=== PATIENT | male | born 1995 | race Caucasian/White ===

== ENCOUNTER 2020-04-29 16:45 | Emergency (ER) | payer SELFPAY ==
--- NOTE | 2020-04-29 16:55 | ED.URI ---
HPI - URI/Sore Throat General Chief Complaint: Upper Respiratory Infection Stated Complaint: sore throat/nose bleeds/headache Time Seen by Provider: 04/29/20 17:01 Source: patient and RN notes reviewed Mode of arrival: ambulatory Limitations: no limitations History of Present Illness HPI Narrative: 25-year-old male presents with concern for 1 week history of sore throat, nasal congestion, sinus pressure. Also reports 1 to 2-month history of intermittent nosebleeds in the right nare, reports intermittent headaches. Reports nosebleed last for approximately 10 seconds and is controlled without intervention. He denies fever, malaise, body aches, cough, shortness of breath. MD elicited complaint: sore throat Related Data Allergies Allergy/AdvReac Type Severity Reaction Status Date / Time No Known Allergies Allergy Verified 04/29/20 17:00 Review of Systems Review of Systems: Narrative: CONSTITUTIONAL: Denies malaise, chills, sweats, or fever. EYES: Denies visual changes, redness, or discharge. ENT: Reports congestion, sinus pain, sore throat, intermittent epistaxis. Denies rhinorrhea, otalgia CARDIOVASCULAR: Denies chest pain, palpitations, or edema. RESPIRATORY: Denies cough or dyspnea. GASTROINTESTINAL: Denies abdominal pain, nausea, vomiting, diarrhea SKIN: Denies rash or itching. MUSCULOSKELETAL: Denies myalgia. NEUROLOGIC: Reports intermittent headache. All systems reviewed & are unremarkable except as noted in HPI and below PMFSH Social History Social History Gender identity (if verbalized by the patient): Male Comments At time of signature, agree with nursing past medical, surgical, social and family history. There is no relevant family history pertinent to the presenting complaint Exam Narrative: Exam Narrative: GENERAL: Well-appearing, well-nourished, and in no acute distress. HEAD: Normocephalic EYES: PERRLA, conjunctivae clear ENT: Nares clear, turbinates edematous and erythematous, clear discharge. No epistaxis or septal hematomas noted. Mucous membranes moist. TM pearly goel with dull light reflex bilaterally; no tragal tenderness. Oropharynx erythematous without lesions. Tonsils enlarged with yellow exudate, no drooling, no hoarseness, no trismus, uvula midline. NECK: Supple. No lymphadenopathy CHEST: Clear to auscultation, breath sounds equal. No wheezing, rhonchi, rales, or stridor. No respiratory distress, speaks in full sentences. HEART: Regular rate and rhythm. No murmur heard. SKIN: Warm, dry, no rash. NEURO: Alert and oriented x3. PSYCH: Normal mood and affect Course Course Emergency Course: Patient is aware of diagnosis, understands and agrees to treatment plan. Anticipatory guidance given. Patient agrees to follow-up as directed and is aware of reasons to seek care at the emergency department. Portions of this record may have been created with voice recognition software Vital Signs Vital signs: Vital Signs Temperature 98 F 04/29/20 16:59 Pulse Rate 98 04/29/20 16:59 Respiratory Rate 20 04/29/20 16:59 Blood Pressure 156/93 H 04/29/20 16:59 Pulse Oximetry 99 04/29/20 16:59 Temperature 98 F 04/29/20 16:59 Pulse Rate 98 04/29/20 16:59 Respiratory Rate 20 04/29/20 16:59 Blood Pressure 156/93 H 04/29/20 16:59 Pulse Oximetry 99 04/29/20 16:59 Reviewed. Pt has been instructed to follow up with his primary care provider within the next week regarding his elevated blood pressure today. MDM - URI/Sore Throat MDM Narrative Medical decision making narrative: Differential diagnosis considered: Epistaxis, strep pharyngitis, allergic rhinitis, upper respiratory tract infection, sinusitis, rhinosinusitis, nasopharyngitis. viral pharyngitis, otitis media, otitis externa, pneumonia, bronchitis, viral cough syndrome, viral syndrome, and influenza. Exam findings show no acute concerns or changes; patient is non-toxic appearing and is in no distress. Patient is appropriate for outp
[2020-04-29 16:59] VITALS: BP 156/93; PULSE 98; RESP 20; TEMP 36.6; O2SAT 99
== END 2020-04-29 17:16 | disposition home or self-care (01) ==
PROVIDERS: Emergency Provider Nurse Practitioner
DX: J01.90 Acute sinusitis, unspecified (principal); Z87.09 Personal history of other diseases of the respiratory system
CPT/HCPCS: 87081; 87880; 99213; G0463

== ENCOUNTER 2020-07-11 16:49 | Emergency (ER) | payer OTHER, SELFPAY ==
[2020-07-11 17:11] VITALS: BP 136/99; PULSE 100; RESP 18; TEMP 37.2; O2SAT 100
--- NOTE | 2020-07-11 19:41 | ED.ALLEREA ---
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 about it He currently has a rash on his face and upper neck which is improving which she thinks might be from contact with bleach although his skin was never an actual contact with bleach, only with clothes which had been washed Then he has several other very well demarcated pruritic erythematous raised plaques with pustules on his low back upper lateral back and upper arms which he believes arose after he sat in an old chair at his girlfriend's parents house He said he got a rash the last time he sat in the same chair but there was a sheet put on at this time so only the parts of his body that were on the chair upholstery got presumably exposed and broke out He has not been exposed to anything else that he can think of No hoarseness or stridor and no wheezing He has a little discomfort with swallowing MD complaint: allergic reaction and hives Onset (ago): hour(s) Symptoms: rash and itching Related Data Home Medications Medication Instructions Recorded Confirmed No Home Medications 07/11/20 Allergies Allergy/AdvReac Type Severity Reaction Status Date / Time Bleach (Sodium Hypochlorite) Allergy Hives Verified 07/11/20 17:16 Review of Systems Review of Systems: All systems reviewed & are unremarkable except as noted in HPI and below Constitutional: Constitutional: Denies chills, Denies fatigue, Denies fever(s), Denies headache(s) and Denies night sweats Eyes: Eyes: Denies change in vision, Denies loss of vision and Denies other visual disturbances ENT: Denies headache(s), Denies hoarseness, Denies epistaxis, Denies nasal congestion and Denies sore throat Cardiovascular: Cardiovascular: Denies chest pain, Denies leg edema, Denies palpitations and Denies dyspnea Respiratory: Respiratory: Denies cough, Denies dyspnea and Denies wheezing Gastrointestinal: Gastrointestinal: Denies abdominal pain, Denies diarrhea, Denies nausea and Denies vomiting Genitourinary: Genitourinary: Denies hematuria, Denies dysuria and Denies urinary frequency Musculoskeletal: Musculoskeletal: Denies abnormal gait, Denies deformity, Denies joint swelling, Denies muscle weakness and Denies numbness Integumentary/Breasts: Skin/Breast: Reports pruritus, Reports erythema, Reports rash, Denies unusual bruising and Denies wounds Neurologic: Denies abnormal gait, Denies headache(s), Denies focal weakness, Denies loss of vision and Denies numbness Psychiatric: Psychiatric: Reports no additional psychiatric complaints Endocrine: Endocrine: Denies fatigue and Denies palpitations Hematologic/Lymphatic: Hematologic/Lymphatic: Denies easy bleeding and Denies easy bruising Allergic/Immunologic: Allergic/Immunologic: Denies wheezing PMFSH Social History Social History Gender identity (if verbalized by the patient): Male Sexual Orientation (if Verbalized by the Patient): Straight or Heterosexual Exam Const: General: healthy appearing, no acute distress and well developed Nutritional Appearance: well nourished Orientation/consciousness: patient oriented x3 (alert) and Other orientation findings (Alert) Limitations: no limitations HENMT: Head: normocephalic and atraumatic Ears: external ears normal General nose exam: No nasal discharge present and no epistaxis Face and sinus: face symmetric Mouth: Yes lip normal, Yes tongue normal and Yes moist mucous membranes Throat: other (No exudate, no erythema) Other: There a
[2020-07-11] MEDS: methylPREDNISolone ACETATE 80 MG/ML VIAL IM (19:54)
[2020-07-11 20:45] VITALS: BP 134/88; PULSE 88; RESP 18; O2SAT 99
== END 2020-07-11 20:45 | disposition home or self-care (01) ==
PROVIDERS: Emergency Provider Emergency Medicine; Referring Provider Emergency Medicine
DX: R21 Rash and other nonspecific skin eruption (principal); T78.40XA Allergy, unspecified, initial encounter; L25.9 Unspecified contact dermatitis, unspecified cause
CPT/HCPCS: 96372; 99283; J1040